=== PATIENT | male | born 1970 | race American Indian/Alaskan Native ===

== ENCOUNTER 2017-09-03 17:32 | Emergency (ER) | payer BC ==
[2017-09-03 17:33] VITALS: BMI 28.4
[2017-09-03 17:53] VITALS: O2SAT 100
--- NOTE | 2017-09-03 18:40 | C.PDOC ---
History Of Present Illness Patient is a 47 y/o male, with a Hx of DM, who presents to the ED with a complaint hypoglycemia. Patient reports feeling weak earlier today and tried to lie down; upon getting up and walking, patient collapsed but did not pass out. Denies any injuries. Patient's checked his blood sugar to be 34. Subsequent to drinking orange juice, patient's blood sugar increased to 43, but counter-compensated again and decreased to 40. EMS picked up the patient and administered dextrose in transport. Patient is awake and alert in the ED without complaints or symptoms at this time. Time Seen by Provider: 09/03/17 17:52 Chief Complaint (Nursing): Altered Mental Status History Per: Patient, Family () History/Exam Limitations: None Onset/Duration Of Symptoms: Hrs (earlier today) Current Symptoms Are (Timing): Gone Exacerbating Factor(s): Diabetic Recent travel outside of the [place]: No Past Medical History Reviewed: Historical Data, Nursing Documentation, Vital Signs Vital Signs: Last Vital Signs Temp 97.7 F 09/03/17 17:35 Pulse 72 09/03/17 18:48 Resp 18 09/03/17 18:48 BP 155/84 H 09/03/17 18:48 Pulse Ox 100 09/03/17 18:48 - Medical History PMH: Bronchitis, Diabetes, Deep Vein Thrombosis, HTN, Hypercholesterolemia, Pneumonia Denies: Depression, Chronic Kidney Disease Surgical History: Appendectomy (Patient states ) - [facility] Procedures INJECT/INFUSE ELECTROLYT (05/14/14) INJECT/INFUSE NEC (05/14/14) NEBULIZER THERAPY (06/07/14) Family History: States: Unknown Family Hx - Social History Hx Tobacco Use: No Hx Alcohol Use: No Hx Substance Use: No - Immunization History Hx Tetanus Toxoid Vaccination: No Hx Influenza Vaccination: No Hx Pneumococcal Vaccination: No Review Of Systems Neurological: Positive for: Altered Mental Status (benign at this time) Physical Exam - Physical Exam Appears: Well, Non-toxic, No Acute Distress Skin: Normal Color, Warm, Dry Head: Atraumatic, Normacephalic Oral Mucosa: Moist Chest: Symmetrical Cardiovascular: Rhythm Regular, No Murmur Respiratory: Normal Breath Sounds, No Rales, No Rhonchi, No Wheezing Gastrointestinal/Abdominal: Soft, No Tenderness Neurological/Psych: Oriented x3, Normal Speech, Normal Cognition, Other (no focal deficits) ED Course And Treatment - Laboratory Results Result Diagrams: 09/03/17 18:42 O2 Sat by Pulse Oximetry: 100 Medical Decision Making Medical Decision Making: EKG, CXR, UA, and blood work ordered. Pepcid administered. Diagnosis: hypoglycemia. Disposition - Disposition Disposition Time: 18:53 Condition: STABLE Forms: [facility] (Malagasy) - Clinical Impression Clinical Impression: Hypoglycemia - Scribe Statement The provider has reviewed the documentation as recorded by the Scribe Sana Perez All medical record entries made by the Scribe were at my direction and personally dictated by me. I have reviewed the chart and agree that the record accurately reflects my personal performance of the history, physical exam, medical decision making, and the department course for this patient. I have also personally directed, reviewed, and agree with the discharge instructions and disposition. Physician Patient Turnover Patient Signed Over To: Paramjit Blount Handoff Comments: pending labs, reevaluation , repeat blood sugar and disposition
[2017-09-03 18:45] LABS: BASO % 0.4 % (0.0-2.0); EOS # 0.1 K/uL (0.0-0.7); EOS % 0.6 % (0.0-4.0); HEMOGLOBIN 13.2 g/dL (12.0-18.0); LYMPH # 1.6 K/uL (1.0-4.3); LYMPH % 17.2 % (20.0-40.0); MEAN CELL VOLUME 89.8 fL (80.0-94.0); MEAN CORPUSCULAR HEMOGLOBIN 30.2 pg (27.0-31.0); MEAN CORPUSCULAR HGB CONC 33.6 g/dL (33.0-37.0); MEAN PLATELET VOLUME 8.9 fL (7.2-11.7); MONO # 0.7 K/uL (0.0-0.8); MONO % 7.6 % (0.0-10.0); NEUT % 74.2 % (50.0-75.0); RBC 4.37 Mil/uL (4.40-5.90); RED CELL DISTRIBUTION WIDTH 12.9 % (11.5-14.5); WHITE BLOOD COUNT 9.4 K/uL (4.8-10.8)
[2017-09-03 18:49] VITALS: RESP 18
--- NOTE | 2017-09-03 18:50 | RAD ---
PROCEDURE: CHEST RADIOGRAPH, 1 VIEW HISTORY: chest pain COMPARISON: Comparison is made with 11/04/2014 FINDINGS: LUNGS: Clear. PLEURA: No pneumothorax or pleural fluid seen. CARDIOVASCULAR: Normal. OSSEOUS STRUCTURES: No significant abnormalities. VISUALIZED UPPER ABDOMEN: Normal. OTHER FINDINGS: None. IMPRESSION: No active disease.
[2017-09-03 19:02] LABS: ALB/GLOB RATIO 1.2 (1.0-2.1); ALBUMIN 4.3 g/dL (3.5-5.0); ALT/SGPT 49 U/L (21-72); AST/SGOT 31 U/L (17-59); BLOOD UREA NITROGEN 17 mg/dL (9-20); CALCIUM 8.7 mg/dl (8.6-10.4); GFR AFRICAN-AMERICAN > 60; GFR NON-AFRICAN AMERICAN 54
[2017-09-03 19:33] LABS: URINE BILIRUBIN NEGATIVE (NEGATIVE); URINE BLOOD NEGATIVE (NEGATIVE); URINE CLARITY Clear (Clear); URINE COLOR Straw (YELLOW); URINE GLUCOSE (UA) 1+ mg/dL (Normal); URINE LEUKOCYTE ESTERASE NEG Leu/uL (Negative); URINE NITRATE NEGATIVE (NEGATIVE); URINE PROTEIN NEGATIVE (NEGATIVE); URINE UROBILINOGEN NORMAL mg/dL (0.2-1.0)
[2017-09-03 20:47] VITALS: BP 169/82; PULSE 76; TEMP 98.4
--- NOTE | 2017-09-04 23:58 | CARD ---
APPROVED REPORT EKG Measurement Heart [id number] <Conclusion> Normal sinus rhythm Normal ECG
== END 2017-09-03 21:05 | disposition home or self-care (01) ==
LOC: C.ER 17:32
DX: E11.649 Type 2 diabetes mellitus with hypoglycemia without coma (principal)